=== PATIENT | male | born 1990 | race Caucasian/White ===

== ENCOUNTER 2017-03-03 13:22 | Emergency (ER) | payer MEDICARE, MEDICAID ==
[2017-03-03 13:51] VITALS: BP 121/66
[2017-03-03] MEDS ORDERED: Lidocaine 1% MPF* 2 ML VIAL INJ ONE (14:18)
[2017-03-03] MEDS ORDERED: Tetan/Diph/Pertus SYR(Tdap)* 0.5 ML SYR(BOOSTRIX) use SYR IM ONE (14:19)
--- NOTE | 2017-03-03 14:19 | UC ---
Laceration HPI - HPI Summary HPI Summary: 26 y/o male presents to the urgent care c/o laceration to his RT thumb with a screwdrivers at 1300 today. Pt reports bleeding stopped with pressure. Pain is 5/10. He can't recall last Tetanus shot. Pt denies numbness and tingling over the tip of thumb or hand. Pt also states a persistent cough with green sputum for the past week. Symptoms started with nasal congestion. Pt denies SOB, chest pain, N/V/D, abdominal pain. - History Of Current Complaint Chief Complaint: UCLaceration Stated Complaint: RIGHT THUMB LACERATION Time Seen by Provider: 03/03/17 14:05 Hx Obtained From: Patient Laceration Location: Finger - Rt thumb laceration s/p injury with screwdriver Mechanism Of Injury: Sharp Trauma Onset/Duration: Sudden Onset - 1300, Lasting Hours, Still Present Severity: Moderate Pain Intensity: 5 Pain Scale Used: 0-10 Numeric Aggravating Factors: Movement Related History: Dominant Hand Right - Allergies/Home Medications Allergies/Adverse Reactions: Allergies Allergy/AdvReac Type Severity Reaction Status Date / Time No Known Allergies Allergy Verified 03/03/17 13:52 PMH/Surg Hx/FS Hx/Imm Hx Previously Healthy: Yes - PT denies PMHX - Surgical History Surgical History: Yes Surgery Procedure, Year, and Place: T&A, [facility]. Right 3rd and 4th Finger Repair [place] [facility] [place] History Known Family History: Positive: Cardiac Disease, Hypertension - Family History: Dyslipidemia - Social History Occupation: Employed Full-time Lives: With Family Alcohol Use: None Substance Use Type: None Smoking Status (MU): Current Some Day Smoker Type: Cigarettes Amount Used/How Often: 4-5 a week Length of Time of Smoking/Using Tobacco: 9 Years Have You Smoked in the Last Year: Yes - for past week - Immunization History Most Recent Tetanus Shot: unknown Hx Tetanus, Diphtheria Vaccination: No - 1993 Review of Systems Constitutional: Negative Skin: Other - Laceration of Rt thumb s/p injury with screwdriver Eyes: Negative ENT: Negative, Nasal Discharge Respiratory: Cough - productive cough Cardiovascular: Negative Gastrointestinal: Negative Genitourinary: Negative Motor: Negative Musculoskeletal: Negative Neurological: Negative Psychological: Negative Is Patient Immunocompromised?: No All Other Systems Reviewed And Are Negative: Yes Physical Exam Triage Information Reviewed: Yes Vital Signs: Initial Vital Signs Temp 98.6 F 03/03/17 13:46 Pulse 91 03/03/17 13:46 BP 121/66 03/03/17 13:46 - Additional Comments Vital Signs Reviewed: Yes Eyes: Positive: Conjunctiva Clear - PERRLA, EOMI, fundi grossly normal ENT: Positive: Normal ENT inspection, Hearing grossly normal, Pharynx normal, Nasal congestion - edematous and erythematous nasal mucosa, Nasal drainage - yellowish drainage, TMs normal. Negative: Tonsillar swelling, Tonsillar exudate Neck: Positive: Supple, Nontender, No Lymphadenopathy Respiratory: no orthopnea or dyspnea. Able to speak in full sentences, no retractions or accessory muscle use, no tripod position, stridor, or head bobbing. CTA bilaterally, mild wheezing in the left upper posterior lung wheezes , rhonchi, rales. Cardiovascular: Positive: RRR, No Murmur, Pulses Normal, Brisk Capillary Refill Abdomen Description: Positive: Nontender, No Organomegaly, Soft. Negative: CVA Tenderness (R), CVA Tenderness (L) Bowel Sounds: Positive: Present Musculoskeletal Exam: Normal Musculoskeletal: Positive: Strength Intact, ROM Intact, No Edema Neurological Exam: Normal Psychological Exam: Normal Skin Exam: Positive superficial laceration on the ventral side of RT thumb in a stellate shape, with flapping of epidermis, about 2.5cm in size. mild tenderness on palpation, FROM of RT hand and fingers and thumb. pulses WNL, reflexes intact, sensation WNL. Laceration Repair - Laceration Repair 1 Description: Stellate Laceration Size After Repair: Length (cm) - 2.5cm Modified For Repair: No Type Injection: Local Anesthesia Used: 1.0% Lido - 2ml Cleansing Completed Via Routine Prep: Yes Irrigation With Pressure Irrigation Device: Yes Closure Material: Sutures - 5 Closure Method: Single Layer Suture Of: Skin, SQ Suture Type: Nylon - 5.0 Laceration Course/Dx - Course/Dx Course Of Treatment: 26 y/o male presents to the urgent care c/o laceration to his RT thumb with a screwdrivers at 1300 today. Pt report bleeding stopped with pressure. Pain is 5/10. He can't recall last Tetanus shot. Pt denies numbness and tingling over the tip of thumb of hand. Pt also states a persistent cough with green sputum for the past week. Symptoms started with nasal congestion. Pt denies SOB, chest pain, N/V/D, abdominal pain. Hx obtained. Laceration of RT thumb and URI on examination. LACERATION PROCEDURE NOTE: . Copious irrigation was done with saline by the nurse and the wound explored. There was no FB or deep structure injury noted. FROM of RT thumb. Procedure was explained and consent obtained, Timeout performed. The wound was anesthetized with 2 mL of 2% lido with good anesthesia. Sterile drape and prep were don. There were 5 sutures with 5.0 nylon type of suture. The length of the wound after closure was 2.5cm. No debridement done. Wound was covered w / bacitracin and thumb tube sterile dressing. The Pt tolerated the procedure well without adverse effects. Neurovascular intact and FROM. Tdap ordered and applied by nurse. Pt advised to f/u suture removal in 10 days and if any signs of infection develop to immediately return to the urgent care of PCP for further management and treatment.Pt RX Tessalon PO to alleviate cough. Pt understood and agreed and left the clinic ambulating A&Ox3. - Differential Dx - Laceration/Wound Differental Diagnoses: Abrasion, Avulsion, Laceration, Puncture Wound, Tendon Laceration Provider Diagnoses: 1- Right thumb laceration repair. 2- Upper respiratory infection Discharge - Discharge Plan Condition: Stable Disposition: HOME Prescriptions: Bacitracin OINTMENT* 1 applic TOPICAL TID #1 tube Benzonatate CAP* [Tessalon 100 MG CAP*] 100 mg PO TID PRN #15 cap PRN Reason: Cough Ibuprofen TAB* [Motrin TAB* 800 MG] 800 mg PO Q6H #20 tab Omeprazole CAP* [Prilosec CAP* 20 MG] 20 mg PO DAILY #30 cap. Patient Education Materials: Laceration (ED), Care For Your Stitches (ED), Upper Respiratory Infection (ED) Referrals: Renee Stanford MD [Primary Care Provider] - 1 Week Additional Instructions: 1-Please take full course of antibiotic to avoid resistance. 2- Keep wound clean and dry and avoid excessive movement w/ your finger. 3- F/u suture removal in 7-10 days w/ your PCP or here at the urgent care. 4-Take Ibuprofen or Tylenol PO q6-8hrs prn for pain or swelling. Take Omeprazole PO to protect your stomach 5- If you develop fever or redness around your finger despite the antibiotic please go to the ER immediately or return to the Urgent care. 6- Take Tassalon PO tabs as directed to alleviate cough. increase fluid intake, eat well and rest
== END 2017-03-03 15:12 | disposition home or self-care (01) ==
LOC: UCCORT 13:22
DX: S61.011A Laceration without foreign body of right thumb without damage to nail, initial encounter (principal); W26.8XXA Contact with other sharp object(s), not elsewhere classified, initial encounter; Y93.9 Activity, unspecified; Y92.9 Unspecified place or not applicable; Y99.9 Unspecified external cause status; J06.9 Acute upper respiratory infection, unspecified
CPT/HCPCS: 12001; 90715; 99212; G0463

== ENCOUNTER 2017-03-13 09:28 | Emergency (ER) | payer MEDICARE, MEDICAID ==
[2017-03-13 11:12] VITALS: BP 142/72
--- NOTE | 2017-03-13 11:42 | UC ---
Upper Extremity HPI - HPI Summary HPI Summary: 26 year old male here for suture removal HERE FOR SUTURE REMOVAL IN RIGHT THUMB. LAC REPAIR DONE HERE ON 03/03/17. NO SX OF INFECTION ON RIGHT THUMB. no acute concerns. just here for removal of sutures. [ End ] - History of Current Complaint Chief Complaint: UCGeneralIllness Stated Complaint: SUTURE REMOVAL Time Seen by Provider: 03/13/17 11:38 Hx Obtained From: Patient Aggravating Factor(s): Nothing Alleviating Factor(s): Nothing Associated Signs And Symptoms: Positive: Negative - Allergies/Home Medications Allergies/Adverse Reactions: Allergies Allergy/AdvReac Type Severity Reaction Status Date / Time No Known Allergies Allergy Verified 03/13/17 11:06 PMH/Surg Hx/FS Hx/Imm Hx Previously Healthy: Yes - Surgical History Surgical History: Yes Surgery Procedure, Year, and Place: T&A, [facility]. Right 3rd and 4th Finger Repair s/p Chainsaw Accident, [facility] - Family History Known Family History: Positive: Cardiac Disease, Hypertension - Family History: Dyslipidemia - Social History Occupation: Employed Full-time Lives: With Family Alcohol Use: None Substance Use Type: None Smoking Status (MU): Current Some Day Smoker Type: Cigarettes Amount Used/How Often: 4-5 a week Length of Time of Smoking/Using Tobacco: 9 Years Have You Smoked in the Last Year: Yes - for past week - Immunization History Most Recent Influenza Vaccination: NOT YET 2016 Most Recent Tetanus Shot: 03/03/17 Hx Tetanus, Diphtheria Vaccination: No - 1993 Review of Systems Skin: Other - sutures in skin All Other Systems Reviewed And Are Negative: Yes Physical Exam Triage Information Reviewed: Yes Appearance: Well-Appearing Vital Signs: Initial Vital Signs Temp 98.5 F 03/13/17 11:07 Pulse 76 03/13/17 11:07 Resp 16 03/13/17 11:07 BP 142/72 03/13/17 11:07 Pulse Ox 100 03/13/17 11:07 Vital Signs Reviewed: Yes Respiratory Exam: Normal Cardiovascular Exam: Normal Musculoskeletal Exam: Normal Neurological Exam: Normal Psychological Exam: Normal Skin: Positive: Other - sutures well approximated and no erythema or discharge. no infection. removed. Upper Extremity Course/Dx - Course Course Of Treatment: removed 5 sutures without difficulty -- no infection - no acute concerns - Differential Dx/Diagnosis Provider Diagnoses: suture removal Discharge - Discharge Plan Condition: Good Disposition: HOME Patient Education Materials: Stitches Removal (ED) Referrals: Renee Stanford MD [Primary Care Provider] - If Needed
== END 2017-03-13 12:04 | disposition home or self-care (01) ==
LOC: UCCORT 09:28
DX: Z48.02 Encounter for removal of sutures (principal); F17.210 Nicotine dependence, cigarettes, uncomplicated
CPT/HCPCS: 99211; G0463

== ENCOUNTER 2019-07-25 09:02 | Emergency (ER) | payer MEDICARE, MEDICAID ==
[2019-07-25 09:18] VITALS: BP 129/69
--- NOTE | 2019-07-25 10:10 | UC ---
Complaint Male HPI - HPI Summary HPI Summary: 28 yo WM p/w right flank pain associated with urinary stream disturbance and urinary frequency and urgency x 2 days, denies LBP, or dysuria or hematuria - History of Current Complaint Chief Complaint: UCGeneralIllness Stated Complaint: CONGESTION Time Seen by Provider: 07/25/19 09:24 Hx Obtained From: Patient Onset/Duration: Sudden Onset Timing: Lasting Days Severity Initially: Moderate Severity Currently: Moderate Pain Intensity: 0 Location: None Aggravating Factor(s): Voiding Alleviating Factor(s): Nothing Associated Signs And Symptoms: Positive: Negative - Allergies/Home Medications Allergies/Adverse Reactions: Allergies Allergy/AdvReac Type Severity Reaction Status Date / Time No Known Allergies Allergy Verified 07/25/19 09:18 Home Medications: Home Medications Ciprofloxacin TAB* [Cipro 500 MG TAB*] 500 mg PO BID 10 Days #20 tab 07/25/19 [ Rx] PMH/Surg Hx/FS Hx/Imm Hx - Surgical History Surgical History: Yes Surgery Procedure, Year, and Place: T&A, [facility]. Right 3rd and 4th Finger Repair s/p Chainsaw Accident, [facility] - Family History Known Family History: Positive: Cardiac Disease, Hypertension - , Non- Contributory Family History: Dyslipidemia - Social History Alcohol Use: None Substance Use Type: None Smoking Status (MU): Current Some Day Smoker Type: Cigarettes Amount Used/How Often: 1 cigarette daily Length of Time of Smoking/Using Tobacco: 9 Years Have You Smoked in the Last Year: Yes - for past week - Immunization History Most Recent Influenza Vaccination: NOT YET 2016 Most Recent Tetanus Shot: 03/03/17 Hx Tetanus, Diphtheria Vaccination: No - 1993 Review of Systems All Other Systems Reviewed And Are Negative: Yes Constitutional: Positive: Negative Skin: Positive: Negative Eyes: Positive: Negative ENT: Positive: Negative Respiratory: Positive: Negative Cardiovascular: Positive: Negative Gastrointestinal: Positive: Negative Genitourinary: Positive: Frequency, Other - see hpi. Negative: Dysuria, Hematuria Motor: Positive: Negative Neurovascular: Positive: Negative Neurological/Mental Status: Positive: Negative Psychological: Positive: Negative Is Patient Immunocompromised?: No Physical Exam - Summary Physical Exam Summary: Vital Signs Reviewed: Yes Appearance: Positive: No Pain Distress Skin: Positive: Warm Head/Face: Positive: Normal Head/Face Inspection Eyes: Positive: Normal ENT: Positive: Normal ENT inspection Dental: Negative: Cervical Lymphadenopathy Neck: Positive: Supple Respiratory/Lung Sounds: Positive: Clear to Auscultation Cardiovascular: Positive: Normal, RRR, S1, S2 Abdomen Description: mild right flank tenderness w/o CVA tenderness Musculoskeletal: Positive: Normal Vital Signs: Initial Vital Signs Temp 37.1 C 07/25/19 09:14 Pulse 106 07/25/19 09:14 Resp 17 07/25/19 09:14 BP 129/69 07/25/19 09:14 Pulse Ox 99 07/25/19 09:14 Complaint Male Course/Dx - Differential Dx/Diagnosis Provider Diagnosis: Acute right flank pain Discharge ED - Sign-Out/Discharge Documenting (check all that apply): Patient Departure All imaging exams completed and their final reports reviewed: No Studies - Discharge Plan Condition: Stable Disposition: HOME Prescriptions: Ciprofloxacin TAB* [Cipro 500 MG TAB*] 500 mg PO BID 10 Days #20 tab Patient Education Materials: Urinary Tract Infection in Men (ED) Referrals: Renee Stanford MD [Primary Care Provider] - - Billing Disposition and Condition Condition: STABLE Disposition: Home
== END 2019-07-25 10:29 | disposition home or self-care (01) ==
LOC: UCCORT 09:02
DX: R10.9 Unspecified abdominal pain (principal); R35.0 Frequency of micturition; R39.15 Urgency of urination; F17.210 Nicotine dependence, cigarettes, uncomplicated
CPT/HCPCS: 81003; 87086; 99212; G0463